=== PATIENT | female | born 1985 | race Caucasian/White ===

== ENCOUNTER 2017-03-22 22:39 | Inpatient (IN) | payer OTHER ==
[~2017-03-22] VITALS: Ht 170.2 cm; Wt 67.0 kg
[~2017-03-22 22:39] MED LIST: BENTYL10 MG PO; COLACE100 MG PO; FLUOXETINE HCL40 MG PO; IBUPROFEN400 MG PO; IMPLANON68 MG SQ; MIRALAX17 GM PO; PHENERGAN50 MG RC; PROMETHAZINE HC25 M1 PO; VITAFOL-OB+DHA1 EACH PO; ZITHROMAX250 MG PO; ZOFRAN ODT4 MG PO; ZOFRAN4 MG PO
[2017-03-23] MEDS ORDERED: ZANTAC150 MG PO (02:34)
== END 2017-03-24 15:35 | disposition home or self-care (01) | DRG 775 ==
LOC: FBCO 22:39 → FBC 22:55 → FBCO 22:55 → FBC 03-24 15:35
PROVIDERS: ADMIT Obstetrics & Gynecology
PROC: 10E0XZZ Delivery of Products of Conception, External Approach (ICD-10-PCS; principal; 2017-03-23)
PROC: 00HU33Z Insertion of Infusion Device into Spinal Canal, Percutaneous Approach (ICD-10-PCS; 2017-03-23)
PROC: 3E0R3CZ (ICD-10-PCS; 2017-03-23)
DX: O42.02 Full-term premature rupture of membranes, onset of labor within 24 hours of rupture (principal); O69.81X0 Labor and delivery complicated by cord around neck, without compression, not applicable or unspecified; O99.824 Streptococcus B carrier state complicating childbirth; Z37.0 Single live birth; Z3A.39 39 weeks gestation of pregnancy
CPT/HCPCS: 01960; 36415; 85027; J2540; J2590; J7120

== ENCOUNTER 2017-10-28 15:03 | Emergency (ER) | payer OTHER ==
[~2017-10-28] VITALS: Ht 170.2 cm; Wt 52.2 kg
--- OUTSIDE RECORDS SUMMARY | ~2017-10-28 | XMS | Clinical Summary ---
Demographics + + + | Address | [address] | | | [place] [address] | + + + | Home Phone | | + + + | Preferred Language | Unknown | + + + | Marital Status | Single | + + + | Jain Affiliation | 1013 | + + + | Race | Unknown | + + + | Ethnic Group | Unknown | + + + Author + + + | Author | [facility] | + + + | Organization | [facility] | + + + | Address | Unknown | + + + | Phone | Unavailable | + + + Support + + + + + | Name | Relationship | Address | Phone | + + + + + | Liliana Pratt | ANNA | [place] | | | | | [address] | | + + + + + Care Team Providers + +------+ + | Care Nurse Intern Name | Role | Phone | + +------+ + | Jabari Meyer DO | PP | | + +------+ + Allergies No Known Allergies Current Medications + + +-------+---------+------+------+-------+ | Prescription | Sig. | Disp. | Refills | Star | End | Statu | | | | | | t | Date | s | | | | | | Date | | | + + +-------+---------+------+------+-------+ | Vit-Fe | Take by mouth | | 1 | 01/0 | | Activ | | Fumarate-FA (PNV | daily. | | | 03/14 | | e | | PLUS | | | | 18 | | | | MULTIVITAMIN) 27-1 | | | | | | | | MG TABS | | | | | | | + + +-------+---------+------+------+-------+ | FLUoxetine | Take 20 mg by mouth | | 0 | 01/0 | | Activ | | (PROZAC) 20 MG | daily. | | | 8/20 | | e | | capsule | | | | 18 | | | + + +-------+---------+------+------+-------+ | ibuprofen (MOTRIN) | Take 800 mg by mouth | | | | | Activ | | 800 MG tablet | as needed for Pain. | | | | | e | + + +-------+---------+------+------+-------+ Active Problems No known active problems Encounters +--------+ + + + + | Date | Type | Specialty | Care Team | Description | +--------+ + + + + | 09/10/ | Documentati | | Nae Echevarria, | Care Coordination | | 2017 | on Only | | VIDEO GAME SCRIPT WRITER | (Amy -Jabari | | | | | | [place]) | +--------+ + + + + | 08/30/ | Documentati | | Nae Echevarria, | Care Coordination | | 2017 | on Only | | VIDEO GAME SCRIPT WRITER | (, MRI | | | | | | results ) | +--------+ + + + + | 08/18/ | Telephone | | Nae Echevarria, | Other | | 2017 | | | VIDEO GAME SCRIPT WRITER | | +--------+ + + + + | 08/06/ | Office | | Eduardo Sin, | Pituitary adenoma | | 2017 | Visit | | MD | ([facility]) (Primary Dx); | | | | | | Galactorrhea | +--------+ + + + + from Last 3 Months Family History + + +------+ + | Medical History | Relation | Name | Comments | + + +------+ + | Cancer | Mother | | | + + +------+ + + +------+--------+ + | Relation | Name | Status | Comments | + +------+--------+ + | Mother | | | | + +------+--------+ + Social History + +-------+ +--------+------+ | Tobacco Use | Types | Packs/Day | Years | Date | | | | | Used | | + +-------+ +--------+------+ | Never Smoker | | | | | + +-------+ +--------+------+ + +---+---+---+ | Smokeless Tobacco: | | | | | Never Used | | | | + +---+---+---+ + + +---------+ + | Alcohol Use | Drinks/We | oz/Week | Comments | | | ek | | | + + +---------+ + | No | | | | + + +---------+ + + + + | Sex Assigned at | Date Recorded | | | | + + + | Not on file | | + + + Last Filed Vital Signs + + + + | Vital Sign | Reading | Time Taken | + + + + | Blood Pressure | 100/66 | 08/06/2017 2:24 PM PST | + + + + | Pulse | 82 | 08/06/2017 2:24 PM PST | + + + + | Temperature | 36.7 C (98 F) | 04/12/2014 7:02 PM PDT | + + + + | Respiratory Rate | 16 | 04/12/2014 7:02 PM PDT | + + + + | Oxygen Saturation | 99% | 08/06/2017 2:24 PM PST | + + + + | Inhaled Oxygen | - | - | | Concentration | | | + + + + | Weight | 52.3 kg (115 lb 6.4 | 08/06/2017 2:24 PM PST | | | oz) | | + + + + | Height | 170.2 cm (5' 7") | 11/22/2011 4:05 PM PDT | + + + + | Body Mass Index | 18.07 | 08/06/2017 2:24 PM PST | + + + + Plan of Treatment + + + + + | Health Maintenance | Due Date | Last Done | Comments | + + + + + | Vaccine: | | | | | Dtap/Tdap/Td (1 - | 5 | | | | Tdap) | | | | + + + + + | Cervical Cancer | | | | | Screening (Pap) | 7 | | | + + + + + | Vaccine: Influenza | | | | | (#1) | 7 | | | + + + + + Results Not on filefrom Last 3 Months Insurance + +--------+ +------+-------+ + | Payer | Benefi | Subscriber | Type | Phone | Address | | | t Plan | ID | | | | | | / | | | | | | | Group | | | | | + +--------+ +------+-------+ + | MEDICAID | [place] | xxxxxxxx | | | [address] | | | [place] | | | | [place] | | | [place] | | | | [address] | | | [place] | | | | | + +--------+ +------+-------+ + + +--------+ +--------+ + + | Guarantor Name | Accoun | Relation to | Date | Phone | Billing Address | | | t Type | Patient | of | | | | | | | | | | + +--------+ +--------+ + + | CARMEN KNIGHT | Person | Self | [birth year] Home: | [address] | | | al/Fam | | 1984 | [phone] [place] | | | [place] | | | [phone] | [address] | + +--------+ +--------+ + +
--- OUTSIDE RECORDS SUMMARY | ~2017-10-28 | XMS | Encounter Summary ---
Demographics + + + | Address | [address] | | | [place] [address] | + + + | Home Phone | | + + + | Preferred Language | Unknown | + + + | Marital Status | Single | + + + | Sikhism Affiliation | 1013 | + + + | Race | Unknown | + + + | Ethnic Group | Unknown | + + + Author + + + | Author | [facility] | + + + | Organization | [facility] | + + + | Address | Unknown | + + + | Phone | Unavailable | + + + Support + + + + + | Name | Relationship | Address | Phone | + + + + + | Liliana Pratt | ANNA | [place] | | | | | [address] | | + + + + + Care Team Providers + +------+ + | Care Supervisor Net Making Name | Role | Phone | + +------+ + | Jabari Meyer DO | PCP | | + +------+ + Reason for Visit + + + | Reason | Comments | + + + | Care Coordination | SPARKLE Cardoso results | + + + Encounter Details +--------+ + + + + | Date | Type | Department | Care Team | Description | +--------+ + + + + | 08/30/ | Documentati | [facility] | Nae Echevarria, | Care Coordination | | 2018 | on Only | Endocrinology [address] | [employer] | (, MRI | | | | [address] | | results ) | | | | [place], [place] | | | | | | [address] | | | | | | [phone] | | | +--------+ + + + + Social History + +-------+ +--------+------+ | [...] on file | | + + + as of this encounter Plan of Treatment Not on fileas of this encounter Visit Diagnoses Not on filein this encounter"
--- OUTSIDE RECORDS SUMMARY | ~2017-10-28 | XMS | Encounter Summary ---
Demographics + + + | Address | [address] | | | [place] [address] | + + + | Home Phone | | + + + | Preferred Language | Unknown | + + + | Marital Status | Single | + + + | Moravian Affiliation | 1013 | + + + | Race | Unknown | + + + | Ethnic Group | Unknown | + + + Author + + + | Author | [facility] | + + + | Organization | [facility] | + + + | Address | Unknown | + + + | Phone | Unavailable | + + + Support + + + + + | Name | Relationship | Address | Phone | + + + + + | Liliana Pratt | ANNA | [place] | | | | | [address] | | + + + + + Care Team Providers + +------+ + | Care Supervisor Testing Name | Role | Phone | + +------+ + | Jabari Meyer DO | PCP | | + +------+ + Reason for Visit + + + | Reason | Comments | + + + | Establish Care | | + + + Consult and Treat (Routine) +--------+ + + + + + | Status | Reason | Specialty | Diagnoses / | Referred By | Referred To | | | | | Procedures | Contact | Contact | +--------+ + + + + + | Closed | Specialty | Endocrinology | Diagnoses | Mitch | [place], | | | Services | | Neoplasm of | DO Jabari | Eduardo Mota MD | | | Required | | unspecified | [address] | [address] | | | | | behavior of | [address] | [address] | | | | | endocrine | [address], | [address], [address] | | | | | glands and | [place] [phone] | [place], [place] | | | | | other parts | Phone: | [address] | | | | | of nervous | [phone] | Phone: | | | | | system | Fax: | [phone] | | | | | | [phone] | Fax: | | | | | | | [phone] | +--------+ + + + + + Encounter Details +--------+---------+ + + + | Date | Type | Department | Care Team | Description | +--------+---------+ + + + | 08/06/ | Office | [facility] | Eduardo Sin, | Pituitary adenoma | | 2018 | Visit | Endocrinology [address] | [address] | (HCC) (Primary Dx); | | | | [address] | [address], [place] [address] | Galactorrhea | | | | [place], [place] | [place] [address] | | | | | [address] | [phone] | | | | | [phone] | | | +--------+---------+ + + + Social History + +-------+ [...] + + + as of this encounter Last Filed Vital Signs + + + + | Vital Sign | Reading | Time Taken | + + + + | Blood Pressure | 100/66 | 08/06/2017 2:24 PM PST | + + + + | Pulse | 82 | 08/06/2017 2:24 PM PST | + + + + | Temperature | - | - | + + + + | Respiratory Rate | - | - | + + + + | Oxygen Saturation | 99% | 08/06/2017 2:24 PM PST | + + + + | Inhaled Oxygen | - | - | | Concentration | | | + + + + | Weight | 52.3 kg (115 lb 6.4 | 08/06/2017 2:24 PM PST | | | oz) | | + + + + | Height | - | - | + + + + | Body Mass Index | 18.07 | 08/06/2017 2:24 PM PST | + + + + in this encounter Instructions Patient Instructions - Eduardo Sin MD - 08/06/2017 2:40 PM PSTWe will be in touch to let you know our interpretation of your MRI. If for some reason you have not heard back fr om us within 1 week of when your tests were taken, please give us a call. in this encounter Progress Notes Eduardo Sin MD - 08/06/2017 2:40 PM PSTFormatting of this note may be different from the original. [facility] Endocrinology New Patient Visit CHIEF COMPLAINT: Pituitary adenoma HISTORY OF PRESENT ILLNESS Shayy Santiago is a 32 y.o. female who is being referred to Endocrinology for further e valuation of a pituitary adenoma. This history was obtained from the patient as well as rev iew of medical records. To summarize her records, she has past medical history that is sign ificant for chronic headaches, anxiety/depression, and pituitary adenoma. Adenoma was first identified in January 2016. In talking with the patient, she reports that the adenoma was first identified at the time she been under investigation for problems with headaches. Shortly after the adenoma was ck ntified she became . While she was the headaches largely resolved. She de livered approximately 4 months ago. Since then the headaches have returned and are worse th an they have been previously. Headaches occur approximately daily. She has noted some visu al distortions associated with these, including bright spots in her visual bruno bilaterall y. She is breast-feeding and has not had difficulty with that. She reports that prior to her she was having occasional problems with galactorrhe a. She denies any problems with peripheral vision loss. She is unaware of any members of t he family had problems with pituitary or other hormonal disturbances. FAMILY HISTORY Family History Problem Relation Age of Onset Cancer Mother PAST MEDICAL/SURGICAL HISTORY Past Medical History Diagnosis Date Pituitary tumor Uterine infection Past Surgical History Procedure Laterality Date COLONOSCOPY DILATION AND CURETTAGE OF UTERUS INTRAUTERINE DEVICE INSERTION SOCIAL HISTORY Social History Social History Marital status: Single Spouse name: N/A Number of children: N/A Years of education: N/A Occupational History Not on file. Social History Main Topics Smoking status: Never Smoker Smokeless tobacco: Never Used Alcohol use No Drug use: No Sexual activity: Not on file Other Topics Concern Not on file Social History Narrative No narrative on file MEDICATIONS Prior to Admission medications Medication Sig Start Date End Date Taking? Authorizing Provider FLUoxetine (PROZAC) 20 MG capsule Take 20 mg by mouth daily. 08/02/17 Yes Historical Provide r ibuprofen (MOTRIN) 800 MG tablet Take 800 mg by mouth as needed for Pain. Yes Historical Provider Vit-Fe Fumarate-FA (PNV PLUS MULTIVITAMIN) 27-1 MG TABS Take by mouth da cal. 08/02/17 Yes Historical Provider REVIEW OF SYSTEMS No fevers or chills. Breathing comfortably. Denies chest pain. No recent urinary changes. Otherwise, ROS was gone over in detail with the patient and is as per HPI or negative. PHYSICAL EXAM BP 100/66 (BP Location: Right upper arm, Patient Position: Sitting) | Pulse 82 | Wt 52.3 kg (115 lb 6.4 oz) | SpO2 99% | BMI 18.07 kg/m Constitutional: alert and oriented, well groomed Psych: appropriate affect and insight Eyes: anicteric, moist, intact visual bruno Ears, Nose, Mouth, Throat: no oropharyngeal erythema ; normal thyroid exam; Hematologic/Lymphatic: no cervical adenopathy; no ecchymosis identified Cardiovascular: heart with regular rate and rhythm, no rubs or gallops Respiratory: lungs clear to auscultation, no wheezes or rales Gastrointestinal: normoactive bowel sounds, non-distended Musculoskeletal: no peripheral edema, normal muscle bulk Neurologic: normal sensation, cranial nerves intact Skin: normal temperature and texture DATA Labs dated April 08, 2016: ACTH 17 Cortisol, base 12.6 Cortisol, 60 minutes 1022.7 Prolactin 17.9 TSH 1.538 FT4 0.97 DATE: 04/16/2016 MRI PITUITARY W/WO CONT [facility] HISTORY: ORIGINAL REPORT Pituitary microadenoma (HCC). Microadenoma reported on outside exam. COMPARISON: None. TECHNIQUE: 5 mL MultiHance was injected IV. Pre-and postcontrast multiplanar MRI was performed of the pituitary with dynamic images. FINDINGS: Pituitary axis: The stalk is midline and the gland has normal size and morphology. Postcontrast enhancement is normal. Visualized brain parenchyma: Normal. Visualized calvarium and extracranial structures: Normal. CONCLUSION: Normal. No pituitary lesions that the description on the comparison study are identified. If comparison images become available, we will be happy to dictate an addendum. ADDENDUM #1 Comparison is now made to MRI February 12, 2016 [facility] A focus of delayed enhancement in the left posterior pituitary measuring roughly 4 millimeters was described on the prior study. Again on further review of the current exam, no lesions of the left pituitary are seen that fit this description. ASSESSMENT & PLAN Shayy Santiago is a pleasant 32 y.o. with pituitary adenoma as well as galactorrhea. I spent some time talking with the patient about pituitary adenomas and symptoms they can c ause either by mass effect or disruption of hormonal production. At this point it isn't imm ediately clear whether or not she truly has an adenoma, MRI from January 2016 suggests a 4 mm l esion though follow-up study done March 2016 suggests that the lesion may have resolved. Certainly, a 4 mm lesion is very small and is within the limits of detection by MRI. I suspect that this adenoma represents a small pituitary microadenoma. She was having prob lems with galactorrhea even before she became . Since her delivery, it sounds as though symptoms have evolved. The headaches are worse, bu t otherwise she lacks symptoms that typically correspond with compression caused by pituitar y nodules. Plans for addressing this are somewhat complicated by the fact that she is breast-feeding. I propose going ahead with the planned MRI. If this shows that her adenoma has increased i n size and is over 1 cm, then it would be in her best interest to stop breast-feeding and in itiate treatment. Whether or not this treatment would need to be surgical versus medical is unclear at this point. On the other hand, if her adenoma has not increased in size, then I think that conservatively following this would be acceptable. At this point we cannot reliably check hormone levels. The fact that she is breast-feeding would make it difficult to interpret prolactin as well as estrogen levels. If her adenoma has increased in size and we need to puruse treatment, she would need to have stopped breast -feeding for at least a month before we could check hormone levels to guide this choice. Further plans will depend on her MRI results. Shayy has been a delightful patient to work with. Thank you for allowing me to particip ate in her care. If you have any questions, please do not hesitate to call. Eduardo Sin MD 08/06/2017 *This report has been prepared using a voice recognition system. The report was reviewed fo r accuracy, however, sound-alike word errors, addition and/or deletions may occur. If there is any question about this report please contact me. in this encounter Plan of Treatment Not on fileas of this encounter Visit Diagnoses + + | Diagnosis | + + | Pituitary adenoma (HCC) - Primary | + + | Benign neoplasm of pituitary gland and craniopharyngeal duct (pouch) | + + | Galactorrhea | + + | Galactorrhea not associated with childbirth | + +"
--- OUTSIDE RECORDS SUMMARY | ~2017-10-28 | XMS | Encounter Summary ---
Demographics + + + | Address | [address] | | | [place] [address] | + + + | Home Phone | | + + + | Preferred Language | Unknown | + + + | Marital Status | Single | + + + | Church Affiliation | 1013 | + + + | Race | Unknown | + + + | Ethnic Group | Unknown | + + + Author + + + | Author | [facility] | + + + | Organization | [facility] | + + + | Address | Unknown | + + + | Phone | Unavailable | + + + Support + + + + + | Name | Relationship | Address | Phone | + + + + + | Liliana Pratt | ANNA | [place] | | | | | [address] | | + + + + + Care Team Providers + +------+ + | Care Health Navigator Name | Role | Phone | + +------+ + | Jabari Meyer DO | PCP | | + +------+ + Reason for Visit +--------+ + | Reason | Comments | +--------+ + | Other | | +--------+ + Encounter Details +--------+ + + + + | Date | Type | Department | Care Team | Description | +--------+ + + + + | 08/18/ | Telephone | [facility] | Nae Echevarria, | Other | | 2018 | | Endocrinology [address] | [address] | | | | | [address] | | | | | | [place] | | | | | | [address] | | | | | | [phone] | | | +--------+ + + + [...]
--- OUTSIDE RECORDS SUMMARY | ~2017-10-28 | XMS ---
Demographics + + + | Address | [address] | | | [place] [address] | + + + | Preferred Language | Unknown | + + + | Marital Status | Unknown | + + + | Confucianism Affiliation | Unknown | + + + | Race | Unknown | + + + | Ethnic Group | Unknown | + + + Author + + + | Author | [facility] | + + + | Organization | [facility] | + + + | Address | [address] | | | [place] [address] | + + + | Phone | | + + + Care Team Providers + + + + | Care Supervisor Throwing Department Name | Role | Phone | + + + + Unavailable | Unavailable | + + + + PROBLEMS +---------+ + + +--------+ + + | Type | Condition | ICD9-CM | TSJ32-XL | Onset | Condition | SNOMED | | | | Code | Code | Dates | Status | Code | +---------+ + + +--------+ + + | Problem | Sinusitis | 473.2 | | | Active | [id number] | | | chronic, | | | | | | | | ethmoidal | | | | | | +---------+ + + +--------+ + + | Problem | Encounter | Z34.90 | | | Active | [id number] | | | for | | | | | | | | supervisio | | | | | | | | n of | | | | | | | | normal | | | | | | | | | | | | | | +---------+ + + +--------+ + + | Problem | Acute | J21.9 | | | Active | [id number] | | | bronchioli | | | | | | | | tis | | | | | | +---------+ + + +--------+ + + | Problem | Nausea & | 787.01 | | | Active | [id number] | | | vomiting | | | | | | +---------+ + + +--------+ + + | Problem | Constipati | 564.01 | | | Active | [id number] | | | on by | | | | | | | | delayed | | | | | | | | colonic | | | | | | | | transit | | | | | | +---------+ + + +--------+ + + | Problem | Bronchitis | | J40 | | Active | [id number] | +---------+ + + +--------+ + + | Problem | | Z33.1 | | | Active | [id number] | +---------+ + + +--------+ + + ALLERGIES Unknown Allergies SOCIAL HISTORY No smoking Hx information available PLAN OF CARE VITAL SIGNS MEDICATIONS Unknown Medications RESULTS No Results PROCEDURES No Known procedures IMMUNIZATIONS No Known Immunizations"
--- OUTSIDE RECORDS SUMMARY | ~2017-10-28 | XMS | Clinical Summary ---
Demographics + + + | Address | [address] | | | [place] [address] | + + + | Home Phone | | + + + | Preferred Language | Unknown | + + + | Marital Status | Single | + + + | Mandaen Affiliation | 1013 | + + + | Race | Unknown | + + + | Ethnic Group | Unknown | + + + Author + + + | Author | [facility] | | | and [place] | + + + | Organization | [facility] | | | and [place] | + + + | Address | Unknown | + + + | Phone | Unavailable | + + + Support + + +---------+ + | Name | Relationship | Address | Phone | + + +---------+ + | Marcus Helm | ECON | Unknown | | + + +---------+ + Care Team Providers + +------+ + | Care French Binding Folder Name | Role | Phone | + +------+ + | Unknown, Doctor | PP | Unavailable | + +------+ + Allergies No Known Allergies Current Medications No known medications Active Problems Not on file Social History + +-------+ +--------+------+ | Tobacco Use | Types | Packs/Day | Years | Date | | | | | Used | | + +-------+ +--------+------+ | Never Smoker | | | | | + +-------+ +--------+------+ + + +---------+ + | Alcohol Use [...] + + + | Blood Pressure | 110/78 | 08/14/20154 PST | + + + + | Pulse | 69 | 08/14/20154 PST | + + + + | Temperature | 36.8 C (98.2 F) | 08/14/20151243 PST | + + + + | Respiratory Rate | 16 | 08/14/20151243 PST | + + + + | Oxygen Saturation | 100% | 08/14/20151243 PST | + + + + | Inhaled Oxygen | - | - | | Concentration | | | + + + + | Weight | - | - | + + + + | Height | - | - | + + + + | Body Mass Index | - | - | + + + + Plan of Treatment + + + + + | Health Maintenance | Due Date | Last Done | Comments | + + + + + | Vaccine: | | | | | Dtap/Tdap/Td (1 - | 5 | | | | Tdap) | | | | + + + + + | CERVICAL CANCER | | | | | SCREENING (PAP EVERY | 7 | | | | 3 YEARS 21-64 ) | | | | + + + + + | Vaccine: Influenza | | | | | (Season Ended) | 8 | | | + + + + + Results Not on filefrom Last 3 Months Insurance + +--------+ +--------+ +---------+ | Payer | Benefi | Subscriber | Type | Phone | Address | | | t Plan | ID | | | | | | / | | | | | | | Group | | | | | + +--------+ +--------+ +---------+ | [employer] | [employer] | [id number] | Medica | +- | | | MEDICAID HMO | HEALTH | | id | 9821 | | | | [place] | | | | | | | [place] | | | | | + +--------+ +--------+ +---------+ + +--------+ +--------+ + + | Guarantor Name | Accoun | Relation to | Date | Phone | Billing Address | | | t Type | Patient | of | | | | | | | | | | + +--------+ +--------+ + + | CARMEN KNIGHT | Person | Self [birth year] Home: | [address] | | [place] | [place] | | 1984 | [phone] | [place] [address] | | | [place] | | | [phone] | | + +--------+ +--------+ + +"
--- OUTSIDE RECORDS SUMMARY | ~2017-10-28 | XMS | Encounter Summary ---
Demographics + + + | Address | [address] | | | [place] [address] | + + + | Home Phone | | + + + | Preferred Language | Unknown | + + + | Marital Status | Single | + + + | Yarsanism Affiliation | 1013 | + + + | Race | Unknown | + + + | Ethnic Group | Unknown | + + + Author + + + | Author | [facility] | + + + | Organization | [facility] | + + + | Address | Unknown | + + + | Phone | Unavailable | + + + Support + + + + + | Name | Relationship | Address | Phone | + + + + + | Liliana Pratt | ANNA | [place] | | | | | [address] | | + + + + + Care Team Providers + +------+ + | Care Beck Tender Name | Role | Phone | + [...] | | | glands and | [place] [id number] | [place], [place] | | | | | other parts | Phone: | [phone] | | | | | of nervous | [phone] | Phone: | | | | | system | Fax: | [phone] | | | | | | [phone] | Fax: | | | | | | | [phone] | +--------+ + + + + + Encounter Details +--------+---------+ + + + | Date | Type | Department | Care Team | Description | +--------+---------+ + + + | 08/06/ | Office | [facility] | Eduardo Sin, | Pituitary adenoma | | 2018 | Visit | Endocrinology 1100 | [address] | (HCC) (Primary Dx); | | | | Jesu CERDA | JIMMY, JOHN A | Galactorrhea | | | | [place], [place] | [place] [address] | | | | | [address] | [phone] | | | | | [phone] | | | +--------+---------+ + + + [...] note may be different from the original. [facility] Endocrinology New Patient Visit CHIEF COMPLAINT: [...] 0.97 DATE: 04/16/2016 MRI PITUITARY W/WO CONT [facility] IM[facility]ING [place] HISTORY: ORIGINAL REPORT Pituitary microadenoma [...] now made to MRI February 12, 2016 [facility] A focus of delayed enhancement in [...]
--- OUTSIDE RECORDS SUMMARY | ~2017-10-28 | XMS ---
Demographics + + + | Address | [address] | | | [place] [address] | + + + | Preferred Language | Unknown | + + + | Marital Status | Unknown | + + + | Sabianist Affiliation | Unknown | + + + | Race | Unknown | + + + | Ethnic Group | Unknown | + + + Author + + + | Author | [facility] | + + + | Organization | [facility] | + + + | Address | [address] | | | [place] [address] | + + + | Phone | | + + + Care Team Providers + + + + | Care Career Development Coordinator Name | Role | Phone | + + + + Unavailable | Unavailable | + + + + PROBLEMS +---------+ + + +--------+ + + | Type | Condition | ICD9-CM | ZAS69-GT | Onset | Condition | SNOMED | | | | Code | Code | Dates | Status | Code | +---------+ + + +--------+ + + | Problem | Sinusitis | 473.2 | | | Active | 50201909 | | | chronic, | | | | | | | | ethmoidal | | | | | | +---------+ + + +--------+ + + | Problem | Encounter | Z34.90 | | | Active | 43822991 | | | for | | | | | | | | supervisio | | | | | | | | n of | | | | | | | | normal | | | | | | | | | | | | | | +---------+ + + +--------+ + + | Problem | Acute | J21.9 | | | Active | 1606488 | | | bronchioli | | | | | | | | tis | | | | | | +---------+ + + +--------+ + + | Problem | Nausea & | 787.01 | | | Active | 61517810 | | | vomiting | | | | | | +---------+ + + +--------+ + + | Problem | Constipati | 564.01 | | | Active | 21170181 | | | on by | | | | | | | | delayed | | | | | | | | colonic | | | | | | | | transit | | | | | | +---------+ + + +--------+ + + | Problem | Bronchitis | | J40 | | Active | [id number] | +---------+ + + +--------+ + + | Problem | | Z33.1 | | | Active | [id number] | +---------+ + + +--------+ + + ALLERGIES + + + + +--------+ | Substance | Reaction | Event Type | Date | Status | + + + + +--------+ | Cats | Unknown | Non Drug | 12 Mar, 2017 | Active | | | | Allergy | | | + + + + +--------+ SOCIAL HISTORY No smoking Hx information available PLAN OF CARE + +---------+ | Activity | Details | + +---------+ +---+ | | +---+ + + + | Follow Up | 4 Weeks Reason:null | + + + VITAL SIGNS + + + + | Height | 66 in | 2017-04-06 | + + + + | Weight | 130.4 lbs | 2017-04-06 | + + + + | BMI | 21.04 kg/m2 | 2017-04-06 | + + + + | Temperature | 98.5 degrees Fahrenheit | 2017-04-06 | + + + + | Heart Rate | 94 /min | 2017-04-06 | + + + + | Blood pressure systolic | 100 mm Hg | 2017-04-06 | + + + + | Blood pressure diastolic | 62 mm Hg | 2017-04-06 | + + + + MEDICATIONS + + + + + + + +--------+ | Medicati | Instruct | Dosage | Frequenc | Start | End Date | Duration | Status | | on | ions | | y | Date | | | | + + + + + + + +--------+ | Breast | | as | | Feb, | | | Active | | Pump na | | directed | | 2016 | | | | + + + + + + + +--------+ | Claritin | | | | | | | Active | + + + + + + + +--------+ | | PO daily | 1 | 24h | | 7 Apr, | 30 | Active | | Vitamin | | | | | 2018 | day(s) | | | 1 | | | | | | | | + + + + + + + +--------+ | Motrin | | | | | | | Active | + + + + + + + +--------+ RESULTS + +--------+ + + | Name | Result | Date | Reference Range | + +--------+ + + | Urinalysis, Dip | | 2017-04-06 | | | (IH) | | | | + +--------+ + + | Specific [place] | 1.020 | | | + +--------+ + + | pH | 5 | | | + +--------+ + + | Leukocytes | 25 | | | + +--------+ + + | Nitrite, Urine | neg | | | + +--------+ + + | Protein | neg | | | + +--------+ + + | Glucose | norm | | | + +--------+ + + | Ketones | neg | | | + +--------+ + + | Urobilingen, | norm | | | | Semi-Qn | | | | + +--------+ + + | Bilirubin | neg | | | + +--------+ + + | Blood Hemoglobin | 250 | | | | (BLD) | | | | + +--------+ + + PROCEDURES + + + + + | Procedure | Date Ordered | Related Diagnosis | Body Site | + + + + + | LAB URINALYSIS (DIP | Apr 06, 2017 | | | | STICK ONLY | | | | + + + + + | visit | Apr 06, 2017 | | | + + + + + IMMUNIZATIONS No Known Immunizations"
--- OUTSIDE RECORDS SUMMARY | ~2017-10-28 | XMS | Encounter Summary ---
Demographics + + + | Address | [address] | | | [place] [address] | + + + | Home Phone | | + + + | Preferred Language | Unknown | + + + | Marital Status | Single | + + + | Pentecostal Affiliation | 1013 | + + + | Race | Unknown | + + + | Ethnic Group | Unknown | + + + Author + + + | Author | [facility] | + + + | Organization | [facility] | + + + | Address | Unknown | + + + | Phone | Unavailable | + + + Support + + + + + | Name | Relationship | Address | Phone | + + + + + | Liliana Pratt | ANNA | [place] | | | | | [address] | | + + + + + Care Team Providers + +------+ + | Care Fertilizer Mixer Name | Role | Phone | + +------+ + | Jabari Meyer DO | PCP | | + +------+ + Reason for Visit + + + | Reason | Comments | + + + | Care Coordination | Referral -Jabari Meyer DO | + + + Encounter Details +--------+ + + + + | Date | Type | Department | Care Team | Description | +--------+ + + + + | 09/10/ | Documentati | [facility] | Nae Echevarria, | Care Coordination | | 2018 | on Only | Endocrinology 1100 | SCABBLER | (Referral -Jabari | | | | Rodrigo CERDA | | [place]) | | | | [place] | | | | | | [address] | | | | | | [phone] | | | +--------+ + + + [...]
--- OUTSIDE RECORDS SUMMARY | ~2017-10-28 | XMS | Encounter Summary ---
Demographics + + + | Address | [address] | | | [place] [address] | + + + | Home Phone | | + + + | Preferred Language | Unknown | + + + | Marital Status | Single | + + + | Episcopal Affiliation | 1013 | + + + | Race | Unknown | + + + | Ethnic Group | Unknown | + + + Author + + + | Author | [facility] | + + + | Organization | [facility] | + + + | Address | Unknown | + + + | Phone | Unavailable | + + + Support + + + + + | Name | Relationship | Address | Phone | + + + + + | Liliana Pratt | ANNA | [place] | | | | | [address] | | + + + + + Care Team Providers + +------+ + | Care Manager Of Business Operations Name | Role | Phone | + [...] + + | 09/10/ | Documentati | [facility] | Nae Echevarria, | Care Coordination | | 2018 | on Only | Endocrinology [address] | 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
--- OUTSIDE RECORDS SUMMARY | ~2017-10-28 | XMS | Clinical Summary ---
Demographics + + + | Address | [address] | | | [place] [address] | + + + | Home Phone | | + + + | Preferred Language | Unknown | + + + | Marital Status | Single | + + + | Shinto Affiliation | 1013 | + + + | Race | Unknown | + + + | Ethnic Group | Unknown | + + + Author + + + | Author | [facility] | | | and [place] | + + + | Organization | [facility] | | | and [...] Team Providers + +------+ + | Care Joint Creaser Name | Role | Phone | + [...] | 1984 | [phone] | [place] [address] | | | [place] | | | [phone] | | + +--------+ +--------+ + +"
--- OUTSIDE RECORDS SUMMARY | ~2017-10-28 | XMS | Encounter Summary ---
Demographics + + + | Address | [address] | | | [place] [address] | + + + | Home Phone | | + + + | Preferred Language | Unknown | + + + | Marital Status | Single | + + + | Episcopalian Affiliation | 1013 | + + + | Race | Unknown | + + + | Ethnic Group | Unknown | + + + Author + + + | Author | [facility] | + + + | Organization | [facility] | + + + | Address | Unknown | + + + | Phone | Unavailable | + + + Support + + + + + | Name | Relationship | Address | Phone | + + + + + | Liliana Pratt | ANNA | [place] | | | | | [address] | | + + + + + Care Team Providers + +------+ + | Care Mainframe Consultant Name | Role | Phone | + [...] + + | 08/18/ | Telephone | [facility] | Nae Echevarria, | Other | | 2018 | | Endocrinology [address] | [place] | | | | | Rodrigo CERDA | | | | | | [place] | | | | | | [address] | | | | | | [phone] | | | +--------+ + + + [...]
--- OUTSIDE RECORDS SUMMARY | ~2017-10-28 | XMS | Clinical Summary ---
Demographics + + + | Address | [address] | | | [place] [address] | + + + | Home Phone | | + + + | Preferred Language | Unknown | + + + | Marital Status | Single | + + + | Restorationist Affiliation | 1013 | + + + | Race | Unknown | + + + | Ethnic Group | Unknown | + + + Author + + + | Author | [facility] | + + + | Organization | [facility] | + + + | Address | Unknown | + + + | Phone | Unavailable | + + + Support + + + + + | Name | Relationship | Address | Phone | + + + + + | Liliana Pratt | ANNA | [place] | | | | | [address] | | + + + + + Care Team Providers + +------+ + | Care Applique Sewer Name | Role | Phone | + [...] | 2017 | on Only | | [employer] | (Amy -Jabari | | | | | | [place]) | +--------+ + + + + | 08/30/ | Documentati | | Nae Echevarria, | Care Coordination | | 2017 | on Only | | LEADITE [employer]ATER | (, MRI | | | | | | results ) | +--------+ + + + + | 08/18/ | Telephone | | Nae Echevarria, | Other | | 2017 | | | [employer] [facility] | | +--------+ + + + + | 08/06/ | Office | | Eduardo Sin, | Pituitary adenoma | | 2017 | Visit | | MD | ([facility]) (Primary Dx); | | | | | [...] | | [place] | | | | [address] | | | RUG CLEANER HELPER | | | | | + +--------+ [...] | | al/Fam | | 1984 | [phone] | [place] | | | [place] | | | [address] | [phone] | + +--------+ +--------+ + +
--- OUTSIDE RECORDS SUMMARY | ~2017-10-28 | XMS | Encounter Summary ---
Demographics + + + | Address | [address] | | | [place] [address] | + + + | Home Phone | | + + + | Preferred Language | Unknown | + + + | Marital Status | Single | + + + | Amish Affiliation | 1013 | + + + | Race | Unknown | + + + | Ethnic Group | Unknown | + + + Author + + + | Author | [facility] | + + + | Organization | [facility] | + + + | Address | Unknown | + + + | Phone | Unavailable | + + + Support + + + + + | Name | Relationship | Address | Phone | + + + + + | Liliana Partt | ANNA | [place] | | | | | [address] | | + + + + + Care Team Providers + +------+ + | Care Spot Checker Name | Role | Phone | + [...] + + | 08/30/ | Documentati | [facility] | Nae Echevarria, | Care Coordination | | 2018 | on Only | Endocrinology 1100 | FEATURES EDITOR | (, MRI | | | | Rodrigo LOPEZ A | | results ) | | | | [place], [place] | | | | | | [address] | | | | | | [phone] | | | +--------+ + + + [...]
[~2017-10-28 15:03] MED LIST changes: +ZANTAC150 MG PO
[2017-10-28] MEDS ORDERED: FLUOXETINE HCL20 MG PO (15:22)
[2017-10-28] MEDS ORDERED: VITAFOL-OB+DHA1 EACH PO (15:22)
== END 2017-10-28 18:21 | disposition home or self-care (01) ==
LOC: ED 15:03
DX: K59.00 Constipation, unspecified (principal); Z79.899 Other long term (current) drug therapy
CPT/HCPCS: 74018; 80053; 81001; 83690; 84703; 85025; 99283

== ENCOUNTER 2018-05-27 08:30 | Day surgery (SDC) | payer OTHER ==
[~2018-05-27] VITALS: Ht 170.2 cm; Wt 54.0 kg
[~2018-05-27 08:30] MED LIST changes: +DICYCLOMINE HCL20 MG PO; +FLUOXETINE HCL20 MG PO; +NORCO 5-325 TA1 EACH PO; +ONDANSETRON ODT8 MG PO; +ZYRTEC10 MG PO
--- NOTE | 2018-05-27 11:29 | NUR ---
PT IS ALERT, ORIENTED AND SEEMED AT EASE WITH TODAY. PT HAS 3 CHILDREN AT HOME AND FIANCE HOME WITH THEM. SHE SEEMED PREPARED, HAD FEW QUESTIONS, DID REQUEST PRAYER. WILL FOLLOW NEEDED
--- NOTE | 2018-05-27 12:03 | NUR ---
05/27/18 1203 Chaya Corral 1140- PT ARRIVES TO PACU AWAKE, BUT DROWSY. PT COUGHING ON ARRIVAL. PT ON RA, SATS 98%. PT DENIES NAUSEA, BUT STATES, "MY BELLY HURTS." 1145- PT CONT TO COUGH, SATS 99% ON RA. PT RATES PAIN IN ABD 6/10 WHEN COUGHING. PT PROVIDED PILLOW TO BRACE COUGH. 1150- PT PROVIDED WATER AND ENCOURAGED TO TAKE SMALL SIPS TO HELP WITH COUGH. PT CONT TO SAT AT 99% ON RA AND STATES SHE "IS FEELING SICK."
--- NOTE | 2018-05-27 12:45 | NUR ---
PATIENT BACK IN DAY SURGERY ROOM FROM PACU. C/O PAIN 11/02. DECLINES ADDITINAL PAIN MEDICATION AT THIS TIME. ICE WATER PLACED AT BEDSIDE. ABDOMINAL DRESSINGS X 4. ONLY RIGHT MOST ABDOMINAL DRESSING HAS SMALL AMOUNT OF DRAINAGE. ALL OTHER DRESSINGS CDI. IV SITE WNL. SCDs ON. CALL LIGHT WITHIN REACH. PATIENT DROWSY, WILL LET REST/SLEEP.
[2018-05-27] MEDS ORDERED: NORCO 7.5-3251 EACH PO (12:57)
--- NOTE | 2018-05-27 14:50 | NUR ---
1335: PATIENT TOLERATED PUDDING. MEDICATED FOR PAIN WITH 1 TAB OF NORCO. PATIENT ASSISTED OOB AND TO BATHROOM. GAIT STEADY. VOID WITHOUT DIFFICULTY. GAIT STEADY BACK TO ROOM. FLU SHOT GIVEN IN LEFT ARM. PATIENT TOLERTED INJECTION WELL. IV DC'D WNL. TIP INTACT. DRESSING APPLIED. 1355: DISCHARGE INSTRUCTIONS GIVEN TO PATIENT AND FIANCE. PATIENT DRESSED INDEPENDENTLY. PATIENT DISCHARGED TO HOME WITH FIANCE VIA WHEELCHAIR.
--- NOTE | 2018-05-28 17:41 | OR ---
[facility] [address], [place] [address] Signed DATE OF OPERATION: 05/27/2018 SURGEON: Jean Braden MD PREOPERATIVE DIAGNOSES: 1. Chronic cholecystitis. 2. Gallbladder polyp versus gallstone. 3. Umbilical hernia (5 mm). POSTOPERATIVE DIAGNOSES: 1. Chronic cholecystitis. 2. 2-3 mm adherent gallstone. 3. Umbilical hernia (5 mm). PROCEDURE: Laparoscopic cholecystectomy with intraoperative cholangiogram. ESTIMATED BLOOD LOSS: None. FINDINGS: Carmen's intraoperative cholangiogram was unremarkable. We opened the gallbladder on the back table. We found one adherent-appearing gallstone about 2-3 mm in diameter. INDICATIONS: Carmen is a 33-year-old female who just had her third child 14 months ago. 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 She continues to breast-feed her third child. She has been having significant trouble with right upper quadrant abdominal pain. She said it is worse after meals. She said originally that was once or twice a month. Now it is coming at least twice a week. She had been to her primary care provider. The ultrasound reveals what looks like two small adherent gallstones versus polyps. The main bile duct was unremarkable. Because her symptoms have continued, she was asked to see me as a general surgeon. In the office, I gave Carmen a pamphlet on the gallbladder describing its location and function. We discussed laparoscopic versus open cholecystectomy. She understands the expected intraop and postop course. There is risk of surgery including, but not limited to bleeding, infection, scarring, change in contour of the skin, damage to bowel, damage to main bile duct, incisional hernias and other unforeseen comorbidities. She had expressed understanding and wished to proceed. PROCEDURE NOTE: Electronically Signed By: JEAN BRADEN MD 05/28/18 1741 PATIENT NAME: CARMEN KNIGHT OPERATIVE REPORT DATE OF : 87 REPORT #: [id number] PHYSICIAN: JEAN BRADEN MD PCP: JABARI BURNHAM DO REPORT IS CONFIDENTIAL AND NOT TO BE RELEASED WITHOUT AUTHORIZATION [facility] [address], [place] [address] Signed I met with Carmen in our preop area. I reminded her she had just a very small umbilical hernia. Consequently, we used her umbilical hernia for [place] trocar site. We had taken her into the operating room and she was placed under general endotracheal tube anesthesia. She was given preoperative antibiotics along with subcutaneous heparin. SCDs were utilized. She was then prepped and draped in usual sterile fashion. We used our standard supraumbilical transverse incision and we elevated the umbilical skin and unveiled her 5-8 mm fascial defect. It was easy enough to slide our [place] trocar through here and insufflate the abdomen. Two right subcostal and subxiphoid trocars were then placed under direct visualization without difficulty. Her gallbladder was grasped and elevated the right upper quadrant. The triangle of Calot was dissected free bluntly with our [place] dissector. We then placed a clip across the cystic artery and it was divided. The intraoperative cholangiocatheter was inserted into the cystic duct. The intraoperative cholangiogram was then performed. This was unremarkable. Her cystic duct is relatively short. We placed a PDS Endoloop on the cystic duct stump and one clip to jacobo its location. After this, the gallbladder was removed from the gallbladder fossa with the help of the cautery and placed into an EndoCatch bag. We then used our laparoscopic suturing device to pass 0 Vicryl suture on either side of the fascia of the subxiphoid trocar site. This was tied down to close this fascia primarily. All the trocars were removed along with the gallbladder. We had taken pictures throughout for photodocumentation. The gallbladder was opened on the back table by our circulating nurse. We could all see a tiny probably 3 mm adherent gallstone. We did not find a second lesion. We then closed the fascia of umbilical site with interrupted [id number] #1 Prolene suture. A 2-0 PDS suture was used to bring the umbilical skin back down to the fascia. We injected local anesthetic in all the trocar sites. Each trocar site was irrigated and suctioned out until clear. The skin and dermis of each trocar site were closed with interrupted 3-0 subcuticular Monocryl sutures. Dry gauze and tape were applied to all incisions. Carmen was then awakened from her anesthesia, extubated in the OR and taken to recovery room in stable condition. Jean Braden MD ALB/MODL /[id number] cc: Jabari Burnham DO Electronically Signed By: JEAN BRADEN MD 05/28/18 1741 PATIENT NAME: CARMEN KNIGHT OPERATIVE REPORT DATE OF : 87 REPORT #: [id number] PHYSICIAN: JEAN BRADEN MD PCP: JABARI BURNHAM DO REPORT IS CONFIDENTIAL AND NOT TO BE RELEASED WITHOUT AUTHORIZATION [facility] [address] [place], [place] [address] Signed Jean Braden MD Copies: JABARI BURNHAM ANDREW L MD ~ Electronically Signed By: JEAN BRADEN MD 05/28/18 1741 PATIENT NAME: CARMEN KNIGHT OPERATIVE REPORT DATE OF : 87 REPORT #: [id number] PHYSICIAN: JEAN BRADEN MD PCP: JABARI BURNHAM DO REPORT IS CONFIDENTIAL AND NOT TO BE RELEASED WITHOUT AUTHORIZATION
[2018-05-28] MEDS ORDERED: DOXYCYCLINE HY100 MG PO (19:25)
== END 2018-05-27 13:55 | disposition home or self-care (01) ==
LOC: DS 08:30
PROVIDERS: Colon & Rectal Surgery
PROC: 0FT44ZZ Resection of Gallbladder, Percutaneous Endoscopic Approach (ICD-10-PCS; principal; 2018-05-27 10:15)
PROC: BF03YZZ Plain Radiography of Gallbladder and Bile Ducts using Other Contrast (ICD-10-PCS; 2018-05-27 10:15)
DX: K81.1 Chronic cholecystitis (principal); K42.9 Umbilical hernia without obstruction or gangrene; Z79.899 Other long term (current) drug therapy
CPT/HCPCS: 00790; J0690; J1100; J1644; J1885; J2250; J2405; J2550; J2704; J3010; J7120

== ENCOUNTER 2020-08-24 17:17 | Emergency (ER) | payer OTHER ==
[~2020-08-24] VITALS: Ht 170.2 cm; Wt 54.0 kg
[~2020-08-24 17:17] MED LIST changes: +DOXYCYCLINE HY100 MG PO; +NORCO 7.5-3251 EACH PO
--- NOTE | 2020-08-25 12:17 | EKG ---
[facility] [address] [facility] [place], [place] [address] Signed Normal sinus rhythm Rightward axis Borderline ECG No previous ECGs available Confirmed by KEITH OSEI DO ([id number]) on 08/25/2020 12:16:57 PM Electronically Signed By: KEITH OSEI DO 08/25/20 1217 PATIENT NAME: CARMEN KNIGHT Electrocardiogram DATE OF : 87 PHYSICIAN: KEITH OSEI DO REPORT #: [id number] REPORT IS CONFIDENTIAL AND NOT TO BE RELEASED WITHOUT AUTHORIZATION
== END 2020-08-24 19:19 | disposition home or self-care (01) ==
LOC: ED 17:17
DX: M94.0 Chondrocostal junction syndrome [Tietze] (principal)
CPT/HCPCS: 71045; 80053; 83735; 84484; 85025; 93005; 93010; 99285-25

== ENCOUNTER 2020-12-22 18:12 | Emergency (ER) | payer OTHER ==
[~2020-12-22] VITALS: Ht 170.2 cm; Wt 54.0 kg
== END 2020-12-22 18:55 | disposition home or self-care (01) ==
LOC: ED 18:12
DX: S93.601A Unspecified sprain of right foot, initial encounter (principal); X50.1XXA Overexertion from prolonged static or awkward postures, initial encounter
CPT/HCPCS: 73630; 99283-25; A9270

== ENCOUNTER 2022-10-15 11:53 | Inpatient (IN) | payer OTHER ==
[~2022-10-15] VITALS: Ht 167.6 cm; Wt 74.4 kg
--- NOTE | 2022-10-15 21:05 | PR ---
[facility] [address] [facility] [place], [place] [address] Signed Progress Notes IP Datetime Report Generated by CPN: 10/15/2022 21:05 PROGRESS NOTES: [id number] Impression: Normal Progression of Labor; Reassuring Heart Rate Procedures: Sterile Vag Exam Plan: Continue Present Management; Augmentation Informed Consent Obtain: Vaginal Delivery VITAL SIGNS: [id number] Vital Signs: Reviewed; Within Normal Limits EXAM: [id number] Dilatation: 4.0 Effacement: 60 Station: -3 Contractions: rare MEMBRANES: [id number] ROM Note: amnisure collected Comments: Pt seen and examined. Doing well. Comfortable w/ contractions. Minimal cervical change and inadequate contractions. Will continue pitocin per protocol FETUS A: [id number] FHR Baseline: 145 Variability: Moderate 6-25bpm Accelerations: 15X15 Decelerations: None FHR Category: Category I Presentation: Vertex Comments on Fetus A: No evidence of metabolic acidosis FETUS B: [id number] Signing Physician: Jay Jya Boyd DO Copies: ~ *Electronically Signed* 10/15/22 5385 JAY JAY BOYD (HAYLEY) DO PATIENT NAME: CARMEN KNIGHT PROGRESS NOTE DATE OF : 87 PHYSICIAN: JAY JAY BOYD (HAYLEY) DO RPT #: [id number] REPORT IS CONFIDENTIAL AND NOT TO BE RELEASED WITHOUT AUTHORIZATION
--- NOTE | 2022-10-16 09:33 | PR ---
[facility] [address] [facility] [place], [place] [address] Signed PP Progress Notes Datetime Report Generated by CPN: 10/16/2022 09:33 SUBJECTIVE: [id number] Pain: Within Normal Limits Vital Signs: [id number] Vital Signs: Reviewed; Within Normal Limits EXAM: Ongoing Cardiovascular: Not Done Respiratory: Not Done Abdomen/Uterus: Abnormal Lochia: Normal Vulva/Perineum: Not Done Breasts: Not Done CVA Tenderness: Not Done Extremities: Normal Incision: Not Applicable Progress: Normal Exam Comments: Fundus firm, NT @ U-2. H/H 9.6/, WBC 17.8, plat 283k IMPRESSION/PLAN/PROCEDURES: [id number] Impression: Normal Progression Plan: Continue Present Management Progress Notes: Doing well. Will continue present care with probable D/C in am. Signing Physician: Kary Kuo MD Copies: ~ *Electronically Signed* 10/16/22932 KARY KUO MD PATIENT NAME: CARMEN KNIGHT PROGRESS NOTE DATE OF : 87 PHYSICIAN: KARY KUO MD RPT #: [id number] REPORT IS CONFIDENTIAL AND NOT TO BE RELEASED WITHOUT AUTHORIZATION
--- NOTE | 2022-10-17 09:40 | PR ---
[facility] [address] [facility] [place], [place] [address] Signed PP Progress Notes Datetime Report Generated by CPManas: 10/17/2022 09:40 SUBJECTIVE: [id number] Pain: Within Normal Limits Pain Comments: sl cramp left calf Vital Signs: [id number] Vital Signs: Reviewed; Within Normal Limits EXAM: Met Cardiovascular: Not Done Respiratory: Not Done Abdomen/Uterus: Abnormal Lochia: Normal Vulva/Perineum: Not Done Breasts: Not Done CVA Tenderness: Not Done Extremities: Normal Incision: Not Applicable Progress: Normal Exam Comments: Fundus firm, NT @ U-2 Left calf without swelling or tenderness to palpation IMPRESSION/PLAN/PROCEDURES: [id number] Impression: Normal Progression Plan: Discharge Procedures: None Progress Notes: Doing well. She desires discharge. Signing Physician: Kary Kuo MD Copies: ~ *Electronically Signed* 10/17/22939 KARY KUO MD PATIENT NAME: CARMEN KNIGHT PROGRESS NOTE DATE OF : 87 PHYSICIAN: KARY KUO MD RPT #: [id number] REPORT IS CONFIDENTIAL AND NOT TO BE RELEASED WITHOUT AUTHORIZATION
== END 2022-10-17 12:23 | disposition home or self-care (01) | DRG 807 ==
LOC: FBC 11:53
PROVIDERS: ADMIT Obstetrics & Gynecology; ATTEND Obstetrics & Gynecology
PROC: 10E0XZZ Delivery of Products of Conception, External Approach (ICD-10-PCS; principal; 2022-10-15)
PROC: 00HU33Z Insertion of Infusion Device into Spinal Canal, Percutaneous Approach (ICD-10-PCS; 2022-10-15)
PROC: 3E0R3BZ Introduction of Anesthetic Agent into Spinal Canal, Percutaneous Approach (ICD-10-PCS; 2022-10-15)
DX: O99.344 Other mental disorders complicating childbirth (principal); Z37.0 Single live birth; Z67.40 Type O blood, Rh positive; Z3A.39 39 weeks gestation of pregnancy; Z86.16 Personal history of COVID-19; F32.9 Major depressive disorder, single episode, unspecified
CPT/HCPCS: 01960; 36415; 85027; 86850; 86900; 86901; A9270; J2590; J2795; J3010; J7121

== ENCOUNTER 2022-10-26 21:06 | Emergency (ER) | payer OTHER ==
[~2022-10-26] VITALS: Ht 182.9 cm; Wt 70.2 kg
[2022-10-26] MEDS ORDERED: FLUOXETINE HCL10 MG PO (21:30)
[2022-10-26] MEDS ORDERED: FEROSUL325 MG PO (21:31)
== END 2022-10-26 22:22 | disposition home or self-care (01) ==
LOC: ED 21:06
DX: O72.1 Other immediate postpartum hemorrhage (principal); Z88.8 Allergy status to other drugs, medicaments and biological substances; Z79.899 Other long term (current) drug therapy
CPT/HCPCS: 36415; 80053; 85025; 85610; 85730; 99284

== ENCOUNTER 2024-02-15 06:55 | Day surgery (SDC) | payer OTHER ==
[2024-02-08 14:39] VITALS: BP 117/82
[~2024-02-15] VITALS: Ht 170.2 cm; Wt 66.8 kg
[2024-02-15] VITALS (7 sets, daily range): BP systolic 106–124; BP diastolic 64–82
--- NOTE | ~2024-02-15 | OR ---
[facility] [address] [facility] [place] [address] Draft DATE OF OPERATION: 02/15/2024 SURGEON: Jay Jay Boyd DO PREOPERATIVE DIAGNOSES: 1. Adenomyosis. 2. Pelvic organ prolapse with rectocele. POSTOPERATIVE DIAGNOSES: 1. Adenomyosis. 2. Pelvic organ prolapse with rectocele. PROCEDURES PERFORMED: 1. Total laparoscopic hysterectomy. 2. Bilateral salpingectomy. 3. Cystoscopy. 4. Posterior repair. ASSOCIATE PROFESSOR OF AUTOMATION: Kary Kuo MD ANESTHESIA: General. ESTIMATED BLOOD LOSS: 75 mL. SPECIMENS: Uterus, bilateral tubes, and cervix. COMPLICATIONS: None. DRAINS: Greene to gravity. PACKING: Vaginal packing with Estrace impregnated Kerlix. COMPLICATIONS: PATIENT NAME: CARMEN KNIGHT OPERATIVE REPORT DATE OF : 87 REPORT #: [id number] PHYSICIAN: JAY JAY BOYD) PCP: JOE DUFF MD REPORT IS CONFIDENTIAL AND NOT TO BE RELEASED WITHOUT AUTHORIZATION [facility] [address] [place] [id number] Draft None. FINDINGS: Normal clitoris, urethral meatus, bilateral Callender's, and Bartholin glands. Significant bulging of the perineal body and a distal rectocele. Otherwise normal appearing vagina and cervix. On laparoscopy, normal uterus, tubes, and ovaries with no evidence of endometriosis or other adhesions. On posterior repair, very thin plane between the vagina and the rectum, but no enterocele appreciated. Good repair of the posterior compartment and perineal body at the end of the procedure. INDICATIONS: Ms. Knight is a very pleasant 38-year-old female with worsening menstrual cycles and adenomyosis demonstrated on imaging and biopsy. She also complains of worsening pelvic organ prolapse and rectocele. The patient was consented for total laparoscopic hysterectomy, bilateral salpingectomy, and cystoscopy with posterior repair. Risks, benefits, and alternatives were discussed in detail with the patient. The patient understands and wishes to proceed with the procedure. TECHNIQUE: The patient was taken to the OR. A time-out was performed to confirm correct patient, correct procedure. General anesthesia was adequately established. The patient is prepped and draped in dorsal lithotomy position with feet in Yellofin stirrups. ICPs were on running and the patient received Ancef 2 g preoperatively and no heparin was indicated. A weighted speculum was placed in the vagina after a Greene catheter was inserted. The anterior lip of the cervix was grasped with an Allis clamp and the cervix was gently dilated using Hegar dilators. A VCare uterine manipulator was placed without difficulty. The surgeon's gloves were changed. Attention was turned to the abdomen. Prior incision just superior to the umbilicus was infiltrated with 0.25% Marcaine with epinephrine and skin was incised using an 11 blade. The fascia was grasped with hemostats, elevated, and entered sharply with Metzenbaum scissors. Peritoneum was entered bluntly and then a [place] operative port was placed without difficulty and pneumoperitoneum established. Survey of the abdomen and pelvis was performed without significant pathology noted. A 5 mm assist port was placed in the left lower quadrant under direct visualization without complication. An 8 mm expanding port was placed in the right lower quadrant under direct visualization without complication. Attention was turned to hysterectomy. The left fallopian tube was grasped with a blunt grasper, elevated, the fallopian tube, divided along the mesosalpinx using the LigaSure device. The left uteroovarian ligament was fulgurated and divided. The process was repeated on the right with division of the fallopian tube and fulguration division of the right utero-ovarian ligament. The left round ligament was fulgurated and divided, the leaves of the broad ligament were easily dissected from the midportion of the round ligament to the edge of the vaginal cuff and across superiorly as well as the posterior edge of the PATIENT NAME: CARMEN KNIGHT OPERATIVE REPORT DATE OF : [birth year] REPORT #: [id number] PHYSICIAN: JAY JAY BOYD (HAYLEY) DO PCP: JOE DUFF MD REPORT IS CONFIDENTIAL AND NOT TO BE RELEASED WITHOUT AUTHORIZATION [facility] [address] [place], [place] [address] Draft round ligament to the uterosacral ligament across the posterior edge of the vaginal cuff. The uterine vessels were identified fulgurated and divided with excellent hemostasis. The process was repeated on the right side without difficulty. Excellent hemostasis was appreciated and hysterotomy was performed using device. The uterus and cervix were delivered through the vagina and sent to Pathology for further evaluation. Wet lap stuffed inside of a surgical gloves and placed inside the vagina to maintain pneumoperitoneum. The colpotomy was irrigated and found to be hemostatic. The colpotomy was then repaired using V-Loc suture with an Endostitch device with careful attention to incorporate the uterosacral ligaments bilaterally and to incorporate the vaginal epithelium with each bite. Excellent hemostasis in an apical support was appreciated. The pelvis was again irrigated, found to be hemostatic. The trocars were removed. Pneumoperitoneum was reduced. The supraumbilical fascia was reapproximated using 0 Vicryl in a running nonlocked manner and skin was reapproximated using 3-0 Vicryl with excellent hemostasis cosmesis. Attention was then turned to cystoscopy. Greene catheter was removed and a 70-degree cystoscope was placed in the urethral meatus and advanced under direct visualization into the bladder with normal bladder dome and bilateral ureteral jets appreciated. The bladder was drained. Greene catheter was reinserted and attention was turned to the posterior repair. The introitus was grasped with Allis clamps bilaterally and inverted triangle was incised over the perineal body. The rectovaginal space was then opened bluntly and sharply and dissection of the vaginal epithelium off of the rectum was carefully performed identifying very thin rectovaginal plane. Once the rectocele was dissected to the apex. No enterocele or other abnormality was noted. The vaginal epithelium was then placed into the hooks and hemostasis was appreciated with combination of judicious Bovie electrocautery and suture ligation. The rectovaginal tissue was then plicated in the midline with interrupted sutures of 0 Vicryl repairing the rectocele with excellent support appreciated. Rectal exam was performed and demonstrated no sutures in the rectum or other concerns. Excess vaginal tissue was then trimmed with Metzenbaum scissors. Vaginal epithelium was then closed with 2-0 Vicryl in a running locked manner to the introitus. The perineorrhaphy was then performed with multiple sutures of 2-0 Vicryl, restoring much improved distal support of the perineal body. Excellent hemostasis was appreciated. The vagina was then packed with Estrace impregnated Kerlix and the Greene catheter remained in place. The patient was then taken to the PACU in good and stable condition. Sponge, needle, and instrument counts were correct x2 at the end the procedure. Dr. Kuo was present and participated in all portions of the procedure. Jay Jay Boyd, PATIENT NAME: CARMEN KNIGHT OPERATIVE REPORT DATE OF : [birth year] REPORT #: [id number] PHYSICIAN: JAY JAY BOYD DO (JD) PCP: JOE DUFF MD REPORT IS CONFIDENTIAL AND NOT TO BE RELEASED WITHOUT AUTHORIZATION [address] [place] [address] [facility] MARLA/AMY /[id number] Copies: ~ PATIENT NAME: CARMEN KNIGHT OPERATIVE REPORT DATE OF : [birth year] REPORT #: [id number] PHYSICIAN: JAY JAY BOYD DO (JD) PCP: JOE DUFF MD REPORT IS CONFIDENTIAL AND NOT TO BE RELEASED WITHOUT AUTHORIZATION
[~2024-02-15 06:55] MED LIST changes: +FEROSUL325 MG PO; +FLUOXETINE HCL10 MG PO; +LACTATED RINGER'S 1,000 ML IV SCH
[2024-02-15] MEDS ORDERED: IBLOOD GLUCOSE TEST STRIP 1 EA TEST VI PRN (07:00)
[2024-02-15] MEDS ORDERED: CEFAZOLIN SODIUM 2 GM/20 ML SYR IV SCH (07:00)
[2024-02-15] MEDS ORDERED: LIDOCAINE HCL 1% 5 ML SDV INJ ONE (07:00)
--- NOTE | 2024-02-15 07:53 | NUR ---
VISITED DURING SPIRITUAL CARE ROUNDS. PT SUPPORTED BY IN ROOM; STRONG RELATIONAL AND RUI RESOURCES EXHIBITED. CARDIAC CARE NURSE NORMALIZED PT EXPERIENCE, PROVIDED SUPPORTIVE PRESENCE, HOSPITALITY, PRAYER. PT EXPRESSED APPRECIATION.
[2024-02-15] MEDS ORDERED: propofoL 200 MG/20 ML VIAL ONE (08:15)
[2024-02-15] MEDS ORDERED: LIDOCAINE HCL 2% 5 ML SDV ONE (08:15)
[2024-02-15] MEDS ORDERED: MIDAZOLAM HCL 2 MG/2 ML VIAL ONE (08:16)
--- NOTE | 2024-02-15 08:26 | NUR ---
PT UPDATED ON SURGICAL WAIT TIME. WARM BLANKET PROVIDED. NO OTHER NEEDS AT THIS TIME. CALL LIGHT WITHIN REACH.
[2024-02-15] MEDS ORDERED: ROCURONIUM BROMIDE 50 MG/5 ML SYR ONE (09:14)
[2024-02-15] MEDS ORDERED: SUGAMMADEX SODIUM 200 MG/2 ML ML ONE (09:14)
[2024-02-15] MEDS ORDERED: KETAMINE in NS 50 MG/5 ML SYR ONE (09:16)
[2024-02-15] MEDS ORDERED: LIDOCAINE HCL 1% 30 ML SDV ONE (09:16)
[2024-02-15] MEDS ORDERED: dexmedeTOMIDine HCl 200 MCG/2 ML VIAL ONE (09:30)
[2024-02-15] MEDS ORDERED: FLUORESCEIN SODIUM 500 MG/5 ML ML ONE (09:34)
[2024-02-15] MEDS ORDERED: KETOROLAC TROMETHAMINE 30 MG/ML VIAL ONE (09:36)
[2024-02-15] MEDS ORDERED: DEXAMETHASONE SOD PHOS 4 MG/ML VIAL ONE (09:36)
[2024-02-15] MEDS ORDERED: ondansetron HCL 4 MG/2 ML VIAL ONE (09:36)
[2024-02-15] MEDS ORDERED: ePHEDrine sulfate 50 MG/ML AMP ONE (09:56)
[2024-02-15] MEDS ORDERED: GLYCOPYRROLATE 1 MG/5 ML MDV ONE (09:56)
[2024-02-15] MEDS ORDERED: ACETAMINOPHEN 1,000 MG/100 ML VIAL ONE (09:58)
[2024-02-15] MEDS ORDERED: HYDROmorphone HCL 2 MG/ML VIAL ONE (10:49)
[2024-02-15] MEDS ORDERED: estradioL 0.01% 42.5 GM TUBE ONE (11:23)
[2024-02-15] MEDS ORDERED: LACTATED RINGER'S 1,000 ML IV ONE (11:44)
[2024-02-15] MEDS ORDERED: HYDROmorphone HCL 1 MG/ML SYR ONE (12:09)
[2024-02-15] MEDS ORDERED: fentaNYL citrate 50 MCG/ML SDV ONE (12:23)
[2024-02-15] MEDS ORDERED: SIMETHICONE 125 MG TABLET CHEWABLE PO PRN (12:30)
[2024-02-15] MEDS ORDERED: ondansetron HCL 4 MG/2 ML VIAL IV PRN (12:30)
[2024-02-15] MEDS ORDERED: METOCLOPRAMIDE HCL 10 MG/2 ML SDV IV PRN (12:30)
[2024-02-15] MEDS ORDERED: fentaNYL citrate 100 MCG/2 ML VIAL IV PRN (12:30)
[2024-02-15] MEDS ORDERED: bisacodyL 10 MG SUPP PR PRN (12:30)
[2024-02-15] MEDS ORDERED: HYDROmorphone HCL 1 MG/ML SYR IV PRN (12:30)
[2024-02-15] MEDS ORDERED: FAMOTIDINE 20 MG/ 2 ML VIAL IV PRN (12:30)
[2024-02-15] MEDS ORDERED: NALOXONE HCL 0.4 MG SYR IV PRN (12:30)
[2024-02-15] MEDS ORDERED: FAMOTIDINE 20 MG TAB PO PRN (12:30)
[2024-02-15] MEDS ORDERED: MORPHINE SULFATE 10 MG/ML VIAL IV PRN (12:30)
[2024-02-15] MEDS ORDERED: PROCHLORPERAZINE EDISYLATE 10 MG/2 ML VIAL IV PRN (12:30)
[2024-02-15] MEDS ORDERED: MAGNESIUM HYDROXIDE/AL HYDROX 30 ML CUP PO PRN (12:30)
[2024-02-15] MEDS ORDERED: OXYCODONE/APAP 5/325 TAB PO PRN (12:30)
[2024-02-15] MEDS ORDERED: fentaNYL citrate 50 MCG/ML SDV IV PRN ×2 (12:45)
--- NOTE | 2024-02-15 12:47 | NUR ---
02/15/24 1247 Shayy Villavicencio 1150 PT ARRIVED IN PACU NON RESPONSIVE TO NOXIOUS STIMULI WITH OPA IN PLACE. 1157 PT REACTIVE. OPA REMOVED. 1210 C/O ABD CRAMPS AND RECTAL PAIN 02/01. NEW ORDERS RECEIVED. 1211 DILAUDID 0.5MG GIVEN IVP. 1221 NO CHANGE IN PAIN LEVEL. DILAUDID O.5MG GIVEN IVP. 1230 PAIN DOWN TO 01/02. 1235 FENTANYL 25MCG GIVEN IVP. 1240 NO CHANGE IN ABD CRAMPS OR RECTAL PAIN. FENTANYL 25MCG GIVEN IVP. 1247 RESTING. REU.
[2024-02-15] MEDS ORDERED: SIMETHICONE 125 MG TABLET CHEWABLE PO SCH (13:00)
--- NOTE | 2024-02-15 13:13 | NUR ---
1300-PT BACK TO ROOM FROM PACU ON . RECEIVED REPORT FROM ABBEY FERNANDEZ. PT IS DROWSY. OPENS EYES AND ANSWERES QUESTIONS. RATES PAIN 4/10, DENIES NAUSEA. RAMOS CATH IN PLACE AND YELLOW URINE NOTED. VAGINAL PACKING IN PLACE. NO OTHER NEEDS AT THIS TIME. CALL LIGHT WITHIN REACH.
[2024-02-15] MEDS ORDERED: IBUPROFEN 800 MG TAB PO SCH (14:00)
--- NOTE | 2024-02-15 14:33 | NUR ---
1356-PT LAYLING IN BED WITH EYES CLOSED. OPENS EYES AND ANSWERES QUESTIONS. RESP EVEN AND UNLABORED. RATES PAIN 2/10. DENIES NAUSEA. RAMOS CATH DRAINING YELLOW URINE. VAGINAL PACKING IN PLACE. AT BEDSIDE. 1400-HOB ELEVATED. PROVIDED PT WITH ICE WATER AND PUDDING. 1405-DR. MENDOZA IN ROOM. VAGINAL PACKING REMOVED. PT TOLERATED WELL. CALL LIGHT WITHIN REACH.
--- NOTE | 2024-02-15 14:38 | NUR ---
1415-PT STATES SINCE SITTING UP SHE IS FEELING NAUSEOUS. HOB LOWERED. MEDS GIVEN PER EMAR. 1420-10ML OF STERILE WATER DRAINED FROM RAMOS BALLOON. RAMOS CATH REMOVED WTIHOUT DIFFICULTY. STATES NAUSEA IS BETTER LAYING DOWN. IV FLUIDS RESTARTED PER DR. MENDOZA. NO OTHER NEEDS AT THIS TIME. CALL LIGHT WITHIN REACH.
--- NOTE | 2024-02-15 14:58 | NUR ---
1448-PAIN MEDICATION GIVEN PER EAMR. 1449-PT LAYING IN BED. PT IS DROWSY. RESP EVEN AND UNLABORED. RATES PAIN 4/10. NAUSEA BETTER. NO OTHER NEEDS AT THIS TIME. AT BEDSIDE. CALL LIGHT WITHIN REACH.
--- NOTE | 2024-02-15 16:40 | NUR ---
1605-PT LAYING IN BED AWAKE. RESP EVEN AND UNLABORED. RATES PAIN 3/10. NAUSEA BETTER. PT WOULD LIKE TO GO TO THE RESTROOM. 1608-PT MOVES SELF TO END OF THE BED. STATES A LITTLE DIZZY. 1610-PT AMBULATES WITH 1 RN ASSIST TO RESTROOM. 1613-PT AMBULATES OUT OF RESTROOM. WAS UNABLE TO VOID. PT STATES "I FEEL LIKE IM GOING TO FAINT". 1615-PT BACK TO BED. HOB LOWERED, EMESIS BAG GIVEN TO PT. NO OTHER NEEDS AT THIS TIME. BACK IN ROOM. CALL LIGHT WITHIN REACH.
--- NOTE | 2024-02-15 17:38 | NUR ---
1720-DR. MENDOZA IN ROOM WITH PT. 1723-PT LAYING IN BED. RESP EVEN AND UNLABORED. RATES PAIN 3/10. NAUSEA DOING OK. PT STATES SHE FEELS WEAK. PT WOULD LIKE TO USE THE RESTROOM. 1725-PT UP TO RESTROOM WITH BY HER SIDE. GAIT STEADY AND TOLERATED WELL. 1728-PT VOIDS 100ML OF URINE. PT AMBULATES BACK TO BED. PT STATES FEELING A LITTLE NAUSEOUS AND WOULD LIKE TO REST A FEW MINUTES. CALL LIGHT WITHIN REACH. AT BEDSIDE.
--- NOTE | 2024-02-15 17:59 | NUR ---
1740-PT READY TO GET DRESSED. IS IN ROOM AND WILL HELP WITH PT. WILL USE CALL LIGHT WHEM READY TO LEAVED. 1750-WENT OVER DISCHARGE INSTRUCTIONS WITH PT AND . ALL QUESTIONS ANSWERED. WENT OVER MEDICATIONS. PT STILL FEELING NAUSEOUS. PT HAS EMESIS BAG TO TAKE WITH HER. RIDE PROVIDED TO FRONT OF HOSPITAL WHERE WAS WAITING WITH THE CAR.
[2024-02-15] MEDS ORDERED: SENNOSIDES/DOCUSATE 1 EA TAB PO SCH (21:00)
--- NOTE | 2024-02-21 16:09 | PATH ---
[facility] [address] [place], [place] [address] Signed SPECIMEN(S): A UTERUS, CERVIX, BILATERAL TUBES SPECIMEN SOURCE: A. UTERUS, CERVIX, BILATERAL TUBES CLINICAL HISTORY: Adenomyosis; AUB; incomplete uterovaginal prolapse FINAL PATHOLOGIC DIAGNOSIS: Uterus with bilateral fallopian tubes, hysterectomy with bilateral salpingectomy: - Secretory phase endometrium; no hyperplasia or neoplasia identified - Cervix with no significant pathologic changes - Bilateral fallopian tubes with no significant pathologic changes BRP MICROSCOPIC EXAMINATION: Histologic sections of all submitted blocks are examined by light microscopy. These findings, together with the gross examination, support the pathologic diagnosis. GROSS DESCRIPTION: The specimen, labeled and designated "Pamela, uterus, cervix, bilateral fallopian tubes," is received in formalin and consists of a holliday-purple uterus (8.8 x 7.2 x 4.2 cm, 98 g) with attached cervix (3.6 x 3.2 cm) and detached bilateral, fimbriated fallopian tubes (7.6 cm in length by 0.4 cm in diameter and 6.2 cm in length by 0.4 cm in diameter). The ectocervix is holliday-purple and granular towards a slitlike cervical os (1.8 cm in length). The specimen is bivalved to reveal a holliday-pink endocervical canal (1.8 cm in greatest dimension) with herringbone architecture and multiple nabothian cysts (measuring up to 0.3 cm in greatest dimension) filled with gelatinous material. The endometrial cavity (4.3 x 2.8 x 1.0 cm) is holliday-pink and lush. Both halves are serially sectioned to reveal holliday-pink, grossly unremarkable cut surfaces. Both fimbriated fallopian tubes are sectioned to reveal holliday-pink cut surfaces with a pinpoint lumen. Rocket Motor Mechanic sections are submitted in A1-A5. Cassette Summary: (A1) anterior and posterior ectocervix endocervical canal, underwriting account representative (A2) anterior endomyometrium, underwriting account representative PATIENT NAME: CARMEN KNIGHT PATHOLOGY DATE OF : [birth year] REPORT #: [id number] PHYSICIAN: INDY HAWTHORNE PCP: JOE DUFF MD REPORT IS CONFIDENTIAL AND NOT TO BE RELEASED WITHOUT AUTHORIZATION [facility] [address] [place], [place] [address] Signed (A3) posterior endomyometrium, underwriting account representative (A4) underwriting account representative cross-sections of measured fallopian tube and entire bisected fimbria (A5) underwriting account representative cross-sections of second measured fallopian tube and entire bisected fimbria KG (under the direct supervision of a pathologist) The Gross Description was prepared using a voice recognition system. The report was reviewed for accuracy; however, sound-alike word errors, addition and/or deletions may occur. If there is any question about this report, please contact Client Services. ADDITIONAL NOTES: Immunohistochemical and/or in situ hybridization studies if performed in this case included appropriate positive controls that reacted as expected. This test was developed and its performance characteristics determined by [facility]. It has not been cleared or approved by the U.S. Food and Drug Administration. The FDA has determined that such clearance or approval is not necessary. This test is used for clinical purposes. It should not be regarded as investigational or for research. [facility] is certified under the Clinical Laboratory Improvement Amendments of 1988 (CLIA) as qualified to perform high complexity clinical laboratory testing. PERFORMING LABORATORY: Technical component was performed by [facility], [address] [place] [address] (CLIA# [id number]). Professional interpretation was performed by [facility] [address] [facility] [id number] Diagnostician: Kenny Garcia MD Pathologist Electronically Signed 02/21/2024 Copies: ~ PATIENT NAME: CARMEN KNIGHT PATHOLOGY DATE OF : [birth year] REPORT #: [id number] PHYSICIAN: INDY PATHOLOGY PCP: JOE DUFF MD REPORT IS CONFIDENTIAL AND NOT TO BE RELEASED WITHOUT AUTHORIZATION
== END 2024-02-15 17:50 | disposition home or self-care (01) ==
LOC: DS 06:55
PROVIDERS: ATTEND Obstetrics & Gynecology
PROC: 0JQC0ZZ Repair Pelvic Region Subcutaneous Tissue and Fascia, Open Approach (ICD-10-PCS; principal; 2024-02-15 09:30)
PROC: 0UT94ZZ Resection of Uterus, Percutaneous Endoscopic Approach (ICD-10-PCS; 2024-02-15 09:30)
PROC: 0UB74ZZ Excision of Bilateral Fallopian Tubes, Percutaneous Endoscopic Approach (ICD-10-PCS; 2024-02-15 09:30)
DX: N80.03 Adenomyosis of the uterus (principal); N81.6 Rectocele; F32.A Depression, unspecified; N93.9 Abnormal uterine and vaginal bleeding, unspecified; Z87.891 Personal history of nicotine dependence; Z79.899 Other long term (current) drug therapy; Z88.8 Allergy status to other drugs, medicaments and biological substances
CPT/HCPCS: 00942; 88305; A9270; J0131; J0690; J1100; J1170; J1885; J2001; J2250; J2405; J2704; J3010; J3490; J7121

== ENCOUNTER 2024-02-20 20:28 | Emergency (ER) | payer OTHER ==
[~2024-02-20] VITALS: Ht 170.2 cm; Wt 65.6 kg
[~2024-02-20 20:28] MED LIST changes: -LACTATED RINGER'S 1,000 ML IV SCH
[2024-02-20] MEDS ORDERED: LACTATED RINGER'S 1,000 ML IV ONE (21:00)
[2024-02-20] MEDS ORDERED: Methylnaltrexone Bromide 12 MG/0.6 ML VIAL SUB-Q ONE (21:00)
[2024-02-20] MEDS ORDERED: LIDOCAINE 2% VISCOUS 6 ML SYR MM ONE (22:00)
[2024-02-20 23:43] VITALS: BP 118/82
== END 2024-02-20 23:43 | disposition home or self-care (01) ==
LOC: ED 20:28
DX: K59.03 Drug induced constipation (principal); T40.2X5A Adverse effect of other opioids, initial encounter; Z88.8 Allergy status to other drugs, medicaments and biological substances; Z79.899 Other long term (current) drug therapy
CPT/HCPCS: J2212; J7121